=== PATIENT | female | born 1990 | race Native Hawaiian/Other Pacific Islander ===

== ENCOUNTER 2017-03-15 14:25 | Emergency (ER) | payer SELFPAY ==
[~2017-03-15] VITALS: Ht 160 cm; Wt 42.1 kg
[2017-03-15 15:33] VITALS: BP 102/66; PULSE 67; RESP 18; TEMP 98.7; O2SAT 99
[2017-03-15] MEDS ORDERED: CIPR-9 PO (17:56)
[2017-03-15] MEDS ORDERED: TETANUS/DIPHTHERIA TOXOID ADULT 0.5 ML VIAL IM ONE (18:00)
[2017-03-15] MEDS ORDERED: CIPROFLOXACIN 500 MG TAB PO ONE ×2 (18:00→18:45)
--- NOTE | 2017-03-15 18:01 | PD ---
HPI Chief Complaint: Skin Problem Time Seen by Provider: 17:42 Travel History International Travel<30 days: No Contact w/Intl Traveler<30days: No Traveled to known affect area: No History of Present Illness HPI 18-year-old female that presents to the ED for evaluation of stepping on a nail. Per patient is happened today. Per patient she was outside when she stepped on a nail. She was wearing a shoe. Per patient she's been able to ambulate with some limping. She was concerned because of the puncture wound. She denies any fevers chills or sweats. No other injuries reported. She is not sure of her last tetanus shot. She has no allergies to medication. Able to move all toes. Per patient the discomfort is 4 out of 10. PFSH Past Medical History ?: Not LMP: NOW Social History Alcohol Use: No Tobacco Use: No Substance Use: No Allergies-Medications (Allergen,Severity, Reaction): Coded Allergies: No Known Allergies (Unverified , 03/15/17) Reported Meds & Prescriptions Reported Meds & Active Scripts Active Cipro (Ciprofloxacin HCl) 500 Mg Tab 500 Mg PO BID 7 Days Review of Systems Except as stated in HPI: all other systems reviewed are Neg Physical Exam Narrative GENERAL: SKIN: Warm and dry. Patient has a very superficial puncture wound to the plantar aspect of the medial aspect of the left foot. Less than 2 mm. Very well approximated. No obvious foreign body noted. No obvious bony injury noted. HEAD: Atraumatic. Normocephalic. EYES: Pupils equal and round. No scleral icterus. No injection or drainage. ENT: No nasal bleeding or discharge. Mucous membranes pink and moist. Tongue is midline. No uvula deviation. NECK: Trachea midline. No JVD. CARDIOVASCULAR: Regular rate and rhythm. RESPIRATORY: No accessory muscle use. Clear to auscultation. Breath sounds equal bilaterally. GASTROINTESTINAL: Abdomen soft, non-tender, nondistended. Hepatic and splenic margins not palpable. MUSCULOSKELETAL: Extremities without clubbing, cyanosis, or edema. No obvious deformities. Full range of motion of all toes in the entire left foot. NEUROLOGICAL: Awake and alert. No obvious cranial nerve deficits. Motor grossly within normal limits. Five out of 5 muscle strength in the arms and legs. Normal speech. PSYCHIATRIC: Appropriate mood and affect; insight and judgment normal. Data Data Last Documented VS Vital Signs Date Time Temp Pulse Resp B/P (MAP) Pulse Ox O2 Delivery O2 Flow Rate FiO2 03/15/17 15:33 98.7 67 18 102/66 (78) 99 Orders Orders Wound Care (03/15/17 17:54) Tetanus/Diphtheria Tox Adult (Tetanus/Di (03/15/17 18:00) Ciprofloxacin (Cipro) (03/15/17 18:00) MDM Medical Decision Making Medical Screen Exam Complete: Yes Emergency Medical Condition: Yes Medical Record Reviewed: Yes Differential Diagnosis Puncture wound versus stepping on a nail versus infection Narrative Course 26-year-old female that presents to the ED for evaluation of stepping on a nail yesterday. Patient was properly examined and was found to have signs and symptoms consistent with puncture wound. At this time I do not see any need for imaging. Patient had originally been ordered an x-ray at triage but she declined stating that she wasn't sure if she needed one. Agreed that she probably does not need one as she states that the nail was brand-new and she did not see any part of it missing. Patient is able to ambulate and move the entire leg. She does not know her last tetanus booster so she was given one today. I recommend trial of Cipro for prophylactic treatment of pseudomonas infection secondary to stepping on a nail with a shoe. Patient was given wound care. Patient agrees with plan. Given first dose of Cipro here. Follow with PCP. See ED worsening symptoms. Diagnosis Primary Impression: Puncture wound Patient Instructions: General Instructions Additional Instructions: Motrin or Tylenol for pain. Apply antibiotic coming as prescribed. Take antibiotic as prescribed. Close follow with PCP. See ED worsening symptoms. Med/Other Pt SpecificInfo: Prescription(s) given Scripts Ciprofloxacin (Cipro) 500 Mg Tab 500 MG PO BID for Infection for 7 Days, TAB 0 Refills Prov: Gregg Velasquez MD 03/15/17 Disposition: 01 DISCHARGE HOME Condition: Stable Feliciano Carranza Mar 15, 2017 18:01
--- NOTE | 2017-03-15 18:54 | RADRPT ---
EXAM DATE/TIME: 03/15/2017 18:44 [facility] COMPARISON: No previous studies available for comparison. INDICATIONS : Left foot pain; possible foreign body. Stepped on nail today. MEDICAL HISTORY : None. SURGICAL HISTORY : None. ENCOUNTER: Initial ACUITY: 1 day PAIN SCORE: 6/10 LOCATION: Left plantar surface, FINDINGS: Three view examination of the left foot demonstrates no soft tissue swelling, dislocation, or fractur e. The tarsal bones appear intact. The interphalangeal and metatarsophalangeal joints are intact. The calcaneus is intact. Bony mineralization is normal. No foreign body is seen. CONCLUSION: Unremarkable examination of the left foot. Noah Zapata MD on March 15, 2017 at 18:50 Board Certified Radiologist. This report was verified electronically.
[2017-03-15 19:48] VITALS: BP 100/69
== END 2017-03-15 19:51 | disposition home or self-care (01) ==
LOC: PHED 14:25 → PHEFT 19:51
DX: S91.332A Puncture wound without foreign body, left foot, initial encounter (principal); W45.0XXA Nail entering through skin, initial encounter; Z23 Encounter for immunization
CPT/HCPCS: 73630; 90471; 90714